=== PATIENT | female | born 1970 | race Hispanic/Latino ===

== ENCOUNTER 2024-06-17 14:11 | Emergency (ER) | payer OTHER ==
[~2024-06-17] VITALS: Ht 157.5 cm; Wt 63.5 kg
[2024-06-17 14:23] VITALS: PULSE 79; RESP 17; TEMP 98.4; O2SAT 99
== END 2024-06-17 15:11 | disposition home or self-care (01) ==
LOC: ER 14:19
DX: R23.3 Spontaneous ecchymoses (principal); S69.81XA Other specified injuries of right wrist, hand and finger(s), initial encounter; Y93.G3 Activity, cooking and baking; Y92.89 Other specified places as the place of occurrence of the external cause
CPT/HCPCS: 99282